=== PATIENT | male | born 1995 | race Caucasian/White ===

== ENCOUNTER 2017-09-12 20:12 | Emergency (ER) | payer BC ==
[~2017-09-12] VITALS: Ht 188 cm; Wt 79.4 kg
[2017-09-12] MEDS ORDERED: HYDROCODONE/APAP 5/325MG 1 EACH TABLET ONE (21:18)
[2017-09-12] MEDS ORDERED: HYDROCODONE/APAP 5/325MG 1 EACH TABLET PO ONE (21:30)
[2017-09-12 22:14] VITALS: BP 125/81
== END 2017-09-12 22:16 | disposition home or self-care (01) ==
LOC: ER 20:12
DX: S91.111A Laceration without foreign body of right great toe without damage to nail, initial encounter (principal); S46.912A Strain of unspecified muscle, fascia and tendon at shoulder and upper arm level, left arm, initial encounter; S90.414A Abrasion, right lesser toe(s), initial encounter; S50.811A Abrasion of right forearm, initial encounter; S50.312A Abrasion of left elbow, initial encounter; E11.9 Type 2 diabetes mellitus without complications; F90.9 Attention-deficit hyperactivity disorder, unspecified type; W17.81XA Fall down embankment (hill), initial encounter; Y93.89 Activity, other specified; Y92.89 Other specified places as the place of occurrence of the external cause; Y99.8 Other external cause status
CPT/HCPCS: 73030-TC; A4606; A6402; Z7610